=== PATIENT | female | born 1955 | race Caucasian/White ===

== ENCOUNTER → 2017-07-10 | Outpatient (CLI) | payer OTHER ==
[~2017-07-10] MED LIST: ALTACE; CRESTOR40 MG; STERAPRED DS10 MG PO; TOPROL XL25 MG; ZPAK PO
== END ==
LOC: M.RAD 15:50
DX: Z12.31 Encounter for screening mammogram for malignant neoplasm of breast (principal)

== ENCOUNTER → 2018-07-11 | Outpatient (CLI) | payer OTHER | LOC: M.RAD 15:31 | DX: Z12.31 Encounter for screening mammogram for malignant neoplasm of breast (principal) ==

== ENCOUNTER → 2019-10-13 | Outpatient (CLI) | payer MEDICARE, OTHER | LOC: M.RAD 11:30 | DX: Z12.31 Encounter for screening mammogram for malignant neoplasm of breast (principal) ==

== ENCOUNTER → 2020-10-14 | Outpatient (CLI) | payer MEDICARE, OTHER | LOC: M.RAD 09:11 | PROVIDERS: ATTEND Internal Medicine Hematology & Oncology | DX: Z12.31 Encounter for screening mammogram for malignant neoplasm of breast (principal) ==